=== PATIENT | female | born 1980 | race Two or more races ===

== ENCOUNTER 2022-01-11 09:04 | Emergency (ER) | payer MEDICAID ==
[~2022-01-11] VITALS: Ht 162.6 cm; Wt 102.7 kg
[2022-01-11 09:12] VITALS: BP 123/84
== END 2022-01-11 17:18 | disposition left against medical advice (07) ==
LOC: ER 09:04
DX: R21 Rash and other nonspecific skin eruption (principal); L29.9 Pruritus, unspecified; Z53.21 Procedure and treatment not carried out due to patient leaving prior to being seen by health care provider